=== PATIENT | female | born 1955 | race Caucasian/White ===

== ENCOUNTER 2016-10-04 09:42 | Emergency (ER) | payer MEDICAID ==
[2016-10-04 10:00] VITALS: BP 153/50
[2016-10-04] MEDS ORDERED: Oseltamivir 75 MG Cap PO ONE ×2 (10:47→10:48)
[2016-10-04] MEDS ORDERED: Ibuprofen 800 MG Tab PO ONE (10:48)
--- NOTE | 2016-10-04 10:53 | EDM.PDOC ---
ED HISTORY OF PRESENT ILLNESS - General Chief Complaint: Respiratory Problem Stated Complaint: HIGH TEMP 104 CONGESTION SHORT OF BREATH Time Seen by Provider: 10/04/16 10:40 Source: Reports: Patient, RN notes reviewed History Limitations: Reports: No limitations - History of Present Illness INITIAL COMMENTS - FREE TEXT/NARRATIVE: 61-year-old female presents emergency department cough fever and body aches, she has been exposed to influenza A and influenza B she did receive a flu shot this yearshe complains of sputum production coughing to the point of posttussive emesis - Related Data Allergies/ADRs: Allergies Allergy/AdvReac Type Severity Reaction Status Date / Time Iodinated Contrast Media - Allergy Severe Shortness Verified 09/24/14 13:58 Oral and of Breath [Iodinated Contrast Media - IV Dye] shellfish derived Allergy Severe Shortness Verified 09/24/14 13:58 of Breath iodine Allergy Cannot Verified 09/24/14 13:58 Remember Home Meds: Home Meds Aspirin [Adult Low Dose Aspirin EC] 81 mg PO DAILY 01/05/14 [History] Calcium Carbonate/Vitamin D3 [Os-Jacques 500+D] 1 each PO BID 01/05/14 [History] Cyanocobalamin (Vitamin B12) [Vitamin B12] 1,000 mcg IJ .MONTHLY 01/05/14 [ History] Multivitamins [Child Chew Vitamin] 1 tab PO BID 01/05/14 [History] Omeprazole 20 mg PO BIDAC 01/05/14 [History] Ondansetron [Zofran] 4 mg PO Q4H PRN 01/05/14 [History] Sucralfate [Carafate] 1 gm PO QID 01/05/14 [History] Triamterene/Hydrochlorothiazid [Triamterene-HCTZ 37.5-25 MG] 1 each PO DAILY [History] Vitamin B Complex [B Complex] 1 each PO DAILY 01/05/14 [History] rOPINIRole [Requip] 1 - 4 tab PO BEDTIME 01/05/14 [History] Albuterol Sulfate [Proair Hfa] 8.5 gm IH Q4H 08/10/14 [History] HYDROmorphone HCl [Dilaudid] 2 mg PO Q4HR PRN 09/24/14 [History] HYDROmorphone HCl [Dilaudid] 2 - 4 mg PO Q4H #50 tablet 09/29/14 [Rx] Past Medical History Respiratory History: Reports: Asthma Gastrointestinal History: Reports: Other (see below) Other Gastrointestinal History: RNY 2002 Social & Family History - Tobacco Use Smoking Status *Q: Never Smoker Second Hand Smoke Exposure: No - Alcohol Use Days Per Week of Alcohol Use: 0 - Recreational Drug Use Recreational Drug Use: No ED ROS GENERAL - Review of Systems Review Of Systems: See Below Constitutional: Reports: fever, chills HEENT: Reports: No symptoms Respiratory: Reports: Shortness of Breath, Cough, Sputum Cardiovascular: Reports: No symptoms GI/Abdominal: Reports: Vomiting (after coughing) ED EXAM, GENERAL - Physical Exam Exam: See Below Exam Limited By: No limitations General Appearance: alert, WD/WN, no apparent distress Head: atraumatic, normocephalic Neck: normal inspection, supple, non-tender, full range of motion Respiratory/Chest: no respiratory distress, lungs clear, normal breath sounds, no accessory muscle use Cardiovascular: regular rate, rhythm, no murmur Course - Vital Signs Last Recorded V/S: Last Vital Signs Temp 102.9 F H 10/04/16 09:57 Pulse 94 10/04/16 09:57 Resp 22 H 10/04/16 09:57 BP 153/50 H 10/04/16 09:57 Pulse Ox - Orders/Labs/Meds Orders: Active Orders 24 hr Category Date Time Status Ibuprofen [Motrin] Med 10/04/16 10:48 Once 800 mg PO ONETIME ONE Oseltamivir [Tamiflu] Med 10/04/16 10:48 Once 75 mg PO ONETIME ONE Medication Orders Ibuprofen (Motrin) 800 mg PO ONETIME ONE Stop: 10/04/16 10:49 Oseltamivir Phosphate (Tamiflu) 75 mg PO ONETIME ONE Stop: 10/04/16 10:49 Meds: Medications Generic Name Dose Route Start Last Admin Trade Name Freq PRN Reason Stop Dose Admin Ibuprofen 800 mg 10/04/16 10:48 Motrin PO 10/04/16 10:49 ONETIME ONE Oseltamivir Phosphate 75 mg 10/04/16 10:48 Tamiflu PO 10/04/16 10:49 ONETIME ONE Discontinued Medications Generic Name Dose Route Start Last Admin Trade Name Freq PRN Reason Stop Dose Admin Oseltamivir Phosphate 75 mg 10/04/16 10:47 Tamiflu PO 10/04/16 10:48 ONETIME ONE Departure - Departure Time of Disposition: 10:52 Disposition: Home, Self-Care 01 Condition: good Clinical Impression: Viral syndrome Forms: ED Department Discharge Additional Instructions: take full course of Tamiflu, use Tessalon Perles as needed for coughing symptoms , use Tylenol and Motrin to help control fever, Please followup with your primary care provider in 3-5 days if not better, please call return to the emergency department with worsening of symptoms. - My Orders Last 24 Hours: My Active Orders 10/04/16 10:48 Ibuprofen [Motrin] 800 mg PO ONETIME ONE Oseltamivir [Tamiflu] 75 mg PO ONETIME ONE - Assessment/Plan Last 24 Hours: My Active Orders 10/04/16 10:48 Ibuprofen [Motrin] 800 mg PO ONETIME ONE Oseltamivir [Tamiflu] 75 mg PO ONETIME ONE Plan: Assessment Acuity = acute Site and laterality = viral syndrome Etiology = probable influenza A. Manifestations = fever, cough, posttussive emesis Location of injury = home Lab values = none Plan given her history I gave her the options of further workup and evaluation versus treatment she elected to proceed with treatment therefore she was given one dose of Tamiflu now one dose to take home prescription written for that she can fill tomorrow pharmacy also prescription for Tessalon Perles continue with Tylenol and Motrin to control fevers Patient was in agreement with the plan all questions were answered, they were instructed to return to the emergency department or call for worsening symptoms. This note was dictated using [employer] voice recognition software please call with any questions.
== END 2016-10-04 11:09 | disposition home or self-care (01) ==
LOC: JP.ED 09:42
DX: B34.9 Viral infection, unspecified (principal); J45.909 Unspecified asthma, uncomplicated; Z79.82 Long term (current) use of aspirin; Z79.899 Other long term (current) drug therapy; Z91.013 Allergy to seafood; Z91.041 Radiographic dye allergy status
CPT/HCPCS: 99285; A9270

== ENCOUNTER 2017-01-04 16:22 | Emergency (ER) | payer MEDICAID ==
[2017-01-04] MEDS ORDERED: LORazepam 0.5 MG Tab PO ONE (16:43)
[2017-01-04 17:32] VITALS: BP 141/86
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
== END 2017-01-04 18:20 | disposition home or self-care (01) ==
LOC: JP.ED 16:22
DX: R06.4 Hyperventilation (principal); F41.9 Anxiety disorder, unspecified; I10 Essential (primary) hypertension; J45.909 Unspecified asthma, uncomplicated; Z91.041 Radiographic dye allergy status; Z91.013 Allergy to seafood; Z88.8 Allergy status to other drugs, medicaments and biological substances; Z79.82 Long term (current) use of aspirin; Z79.899 Other long term (current) drug therapy; Z90.710 Acquired absence of both cervix and uterus; Z98.51 Tubal ligation status; Z98.1 Arthrodesis status
CPT/HCPCS: 36415; 36600; 70450; 80053; 80305; 81001; 82803; 85025; 93005; 99284; A9270

== ENCOUNTER 2020-01-15 10:10 | Emergency (ER) | payer MEDICAID, MEDICARE ==
[2020-01-15 10:31] VITALS: BP 170/74; PULSE 75
--- NOTE | 2020-01-15 10:44 | EDM.PDOC ---
ED HPI GENERAL MEDICAL PROBLEM - General Chief Complaint: General Stated Complaint: fell and hit side of face on FRIDAY 01/12 Time Seen by Provider: 01/15/20 10:25 Source of Information: Reports: Patient, Family, Old Records, RN History Limitations: Reports: No Limitations - History of Present Illness INITIAL COMMENTS - FREE TEXT/NARRATIVE: 64 yo female fell in her home 2 days ago and landed on her L side. She is not sure why she fell. Was able to get up and fxn normally after that. Has noticed some forehead tingling and L arm tingling sine the injury, but she admits she hit both of there areas when she fell. She called the clinic today and was told to go to the ER. Has had no problem walking since and no speech issues. She had stiffness after the fall yesterday that is improving. Onset: Sudden Onset Date: 01/13/20 Duration: Day(s): (2), Improving Location: Reports: Face (L forehead), Upper Extremity, Left Quality: Reports: Other (tingling) Severity: Mild Improves with: Reports: Other (time) Worsens with: Reports: Other (? 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: Other (see below) (none) Left Arm Pain Score (Numeric/FACES): 4 - Related Data Allergies Allergy/AdvReac Type Severity Reaction Status Date / Time Iodinated Contrast Media Allergy Severe Shortness Verified 01/04/17 16:59 [Iodinated Contrast Media - of Breath IV Dye] shellfish derived Allergy Severe Shortness Verified 01/04/17 16:59 of Breath iodine Allergy Cannot Verified 01/04/17 16:59 Remember Home Meds: Home Meds Aspirin [Adult Low Dose Aspirin EC] 81 mg PO DAILY 01/05/14 [History] Calcium Carbonate/Vitamin D3 [Os-Jacques 500+D] 1 each PO BID 01/05/14 [History] Cyanocobalamin (Vitamin B12) [Vitamin B12] 1,000 mcg IJ .MONTHLY 01/05/14 [History] Multivitamins [Child Chew Vitamin] 1 tab PO BID 01/05/14 [History] Omeprazole 20 mg PO DAILY 01/05/14 [History] Triamterene/Hydrochlorothiazid [Triamterene-HCTZ 37.5-25 MG] 1 each PO DAILY 01/05/14 [History] Vitamin B Complex [B Complex] 1 each PO DAILY 01/05/14 [History] rOPINIRole [Requip] 1 - 4 tab PO BEDTIME 01/05/14 [History] Albuterol Sulfate [Proair Hfa] 8.5 gm IH Q4H 08/10/14 [History] lisinopriL [Lisinopril] 20 mg PO DAILY 01/15/20 [History] Past Medical History HEENT History: Reports: Other (See Below) Other HEENT History: floaties in eyes Cardiovascular History: Reports: Hypertension Respiratory History: Reports: Asthma Gastrointestinal History: Reports: Bowel Obstruction Other Gastrointestinal History: RNY 2002 Genitourinary History: Reports: None 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: Musculoskeletal History: Reports: Fracture, Neck Pain, Chronic Other Musculoskeletal History: neck fracture with repair 1986 Neurological History: Reports: Head Trauma Psychiatric History: Reports: Anxiety - Infectious Disease History Infectious Disease History: Reports: Chicken Pox - Past Surgical History GI Surgical History: Reports: Bariatric Procedure, Cholecystectomy, Hernia Repair/Other, Other (See Below) Other GI Surgeries/Procedures: multiple hernia surgeries unsure Female Surgical History: Reports: Hysterectomy, Tubal Ligation Neurological Surgical History: Reports: Spinal Fusion Social & Family History - Tobacco Use Smoking Status *Q: Never Smoker - Caffeine Use Caffeine Use: Reports: Coffee - Recreational Drug Use Recreational Drug Use: No ED ROS GENERAL - Review of Systems Review Of Systems: See Below Constitutional: Reports: No Symptoms HEENT: Reports: No Symptoms Respiratory: Reports: No Symptoms Cardiovascular: Reports: No Symptoms GI/Abdominal: Reports: No Symptoms Musculoskeletal: Reports: No Symptoms Skin: Reports: No Symptoms Neurological: Reports: Headache (chronic, not worse), Tingling (L arm and L forehead in areas she hit with her fall 2 d ago. ). Denies: Confusion, Dizziness, Seizure, Syncope, Trouble Speaking, Difficulty Walking, Change in Speech, Gait Disturbance Psychiatric: Reports: No Symptoms ED EXAM, GENERAL - Physical Exam Exam: See Below Exam Limited By: No Limitations General Appearance: Alert, WD/WN, No Apparent Distress Eye Exam: Bilateral Eye: Normal Inspection Ears: Normal External Exam, Normal Canal, Hearing Grossly Normal, Normal TMs Ear Exam: Bilateral Ear: Auricle Normal, Canal Normal Nose: Normal Inspection, No Blood Throat/Mouth: Normal Inspection, Normal Lips, Normal Oropharynx, Normal Voice, No Airway Compromise Head: Atraumatic, Normocephalic Neck: Normal Inspection, Supple, Non-Tender, Full Range of Motion Respiratory/Chest: No Respiratory Distress, Lungs Clear, Normal Breath Sounds, No Accessory Muscle Use Cardiovascular: Regular Rate, Rhythm, No Edema GI/Abdominal: Normal Bowel Sounds, Soft, Non-Tender, No Distention Back Exam: Normal Inspection. No: Decreased Range of Motion, Vertebral Tenderness Extremities: Normal Inspection, Normal Range of Motion, Non-Tender, No Pedal Edema Neurological: Alert, Oriented, CN II-XII Intact, Normal Cognition, No Motor/Sensory Deficits. No: Disoriented, Abnormal Gait, Abnormal Reflexes, Sensory/Motor Deficit Psychiatric: Normal Affect, Normal Mood Skin Exam: Warm, Dry, Intact, Normal Color, No Rash Course - Vital Signs Last Recorded V/S: Last Vital Signs Temp 36.1 C 01/15/20 10:25 Pulse 75 01/15/20 10:25 Resp 16 01/15/20 10:25 BP 170/74 H 01/15/20 10:25 Pulse Ox 98 01/15/20 10:25 Departure - Departure Time of Disposition: 10:44 Disposition: Home, Self-Care 01 Condition: Good Clinical Impression: Fall Qualifiers: Encounter type: initial encounter Qualified Code(s): W19.XXXA - Unspecified fall, initial encounter - Discharge Information *PRESCRIPTION DRUG MONITORING PROGRAM REVIEWED*: No *COPY OF PRESCRIPTION DRUG MONITORING REPORT IN PATIENT NICKOLAS: No Referrals: Bonnie Yang PA-C [Primary Care Provider] - Additional Instructions: Recheck if your symptoms do not continue to improve over the next few days. Sepsis Event Note (ED) - Evaluation Sepsis Screening Result: No Definite Risk - Focused Exam Vital Signs: Vital Signs Temp Pulse Resp BP Pulse Ox 01/15/20 10:25 36.1 C 75 16 170/74 H 98
== END 2020-01-15 11:00 | disposition home or self-care (01) ==
LOC: JP.ED 10:10
DX: R20.2 Paresthesia of skin (principal); I10 Essential (primary) hypertension; J45.909 Unspecified asthma, uncomplicated; Z88.6 Allergy status to analgesic agent; Z91.013 Allergy to seafood; Z91.041 Radiographic dye allergy status; Z79.82 Long term (current) use of aspirin; Z79.899 Other long term (current) drug therapy; Z90.49 Acquired absence of other specified parts of digestive tract; Z90.710 Acquired absence of both cervix and uterus; Z98.51 Tubal ligation status; Z98.890 Other specified postprocedural states; W01.10XA Fall on same level from slipping, tripping and stumbling with subsequent striking against unspecified object, initial encounter
CPT/HCPCS: 99283

== ENCOUNTER 2020-07-04 05:36 | Day surgery (SDC) | payer MEDICARE ==
[2020-07-04] MEDS ORDERED: Lactated Ringers 1,000 ML IV SCH ×2 (06:15→09:15)
[2020-07-04] MEDS ORDERED: Cyanocobalamin (Vitamin B12) 1,000 MCG/ML SDV IM ONE ×2 (06:45→08:15)
[2020-07-04] MEDS ORDERED: fentaNYL 100 MCG/2 ML SDV ONE ×2 (07:00→09:51)
[2020-07-04] MEDS ORDERED: Midazolam 1 MG/ML 2 ML SDV ONE ×2 (07:00→09:51)
[2020-07-04] MEDS ORDERED: Propofol 200 MG/20 ML SDV ONE ×2 (07:01→09:51)
[2020-07-04] MEDS ORDERED: Glycopyrrolate 0.2 MG/ML 2 ML SDV IVPUSH ONE ×2 (07:15→09:45)
[2020-07-04] MEDS ORDERED: MVI, Adult with Vitamin K 10 ML, Thiamine 200 MG, Chromium/Copper/Mang/Selen/Zn 1 ML in... IV SCH ×4 (07:30)
[2020-07-04 09:16] VITALS: BP 114/64; PULSE 61
[2020-07-04] MEDS ORDERED: MVI, Adult with Vitamin K 10 ML, Thiamine 200 MG, Zinc/Copper/Manganese/Selenium 1 ML i... IV ONE ×4 (10:15)
--- NOTE | 2020-07-14 16:50 | OR ---
DATE OF PROCEDURE: 07/04/2020 SURGEON: Raul Jones MD PREOPERATIVE DIAGNOSIS: Postprandial upper and mid abdominal pain. POSTOPERATIVE DIAGNOSIS: Normal upper gastrointestinal endoscopic examination status post Marcelo-en-Y gastric bypass suggestive of more distal partial small bowel obstruction. OPERATIVE PROCEDURE: Upper gastrointestinal endoscopy. ANESTHESIA: IV sedation. INDICATION FOR PROCEDURE: A 65-year-old status post Marcelo-en-Y gastric bypass. In the past, she has had some bowel obstructions and is presently having problems with postprandial abdominal pain. The plan is to proceed with initial upper GI endoscopy for evaluation. Potential risks including bleeding and perforation were discussed, and the patient wishes to proceed. DETAILS OF PROCEDURE: The patient was taken to the operating room and placed in a left lateral decubitus position. IV sedation was administered after which the upper GI endoscope was passed orally through the length of the esophagus, into the gastric pouch, from there through the gastrojejunostomy roughly 20 cm into the Marcelo limb. To that level, no abnormalities were noted. There were no areas of inflammation or stricturing. The scope was then withdrawn and the above findings reconfirmed. The overall picture with an upper GI endoscopic examination with the patient's symptoms would be all consistent with a partial small bowel obstruction. This will be discussed with the patient and arrangements were made for a probable laparotomy for traction. Raul Jones MD /[id number]
== END 2020-07-04 10:00 | disposition home or self-care (01) ==
LOC: JP.SDS 05:36
PROVIDERS: ATTEND Surgery
DX: R10.9 Unspecified abdominal pain (principal); I10 Essential (primary) hypertension; J45.909 Unspecified asthma, uncomplicated; K21.9 Gastro-esophageal reflux disease without esophagitis; Z01.812 Encounter for preprocedural laboratory examination; Z20.822 Contact with and (suspected) exposure to COVID-19; Z98.84 Bariatric surgery status
CPT/HCPCS: 44360; J2250; J2704; J3010; J3411; J3420; J3490; J7120; U0002

== ENCOUNTER 2020-07-11 05:19 | Inpatient (IN) | payer MEDICARE ==
[2020-07-11] MEDS ORDERED: Acetaminophen 500 MG Tab PO ONE (05:45)
[2020-07-11] MEDS ORDERED: Dextrose 5%-Lactated Ringers 1,000 ML IV SCH (06:00)
[2020-07-11] MEDS ORDERED: Albuterol/Ipratropium 3.0-0.5 MG/3 ML Neb Soln NEB ONE (06:30)
[2020-07-11] MEDS ORDERED: Meropenem 500 MG SDV ONE (06:46)
[2020-07-11] MEDS ORDERED: Ondansetron 4 MG/2 ML SDV ONE (07:06)
[2020-07-11] MEDS ORDERED: Dexamethasone 4 MG/ML SDV ONE (07:06)
[2020-07-11] MEDS ORDERED: Succinylcholine 200 MG/10 ML MDV ONE (07:06)
[2020-07-11] MEDS ORDERED: Rocuronium 50 MG/5 ML Vial ONE (07:06)
[2020-07-11] MEDS ORDERED: Propofol 200 MG/20 ML SDV ONE (07:06)
[2020-07-11] MEDS ORDERED: Glycopyrrolate 0.2 MG/ML 5 ML MDV ONE (07:06)
[2020-07-11] MEDS ORDERED: Neostigmine Methylsulfate 1 MG/ML 5 ML Syringe ONE (07:06)
[2020-07-11] MEDS ORDERED: fentaNYL 250 MCG/5 ML SDV ONE ×2 (07:07→07:49)
[2020-07-11] MEDS ORDERED: cefOXitin 2 GM in Sodium Chloride 0.9% 50 ML IV ONE (07:15)
[2020-07-11] MEDS ORDERED: Magnesium Sulfate 3.5 GM in Sodium Chloride 0.9% 250 ML IV ONE (07:30)
[2020-07-11] MEDS ORDERED: Ropivacaine 36 ML, dexAMETHasone 8 MG, EPINEPHrine 0.4 MG, Sodium Chloride 0.9% 41.6 ML NERVRT SCH ×4 (07:30)
[2020-07-11] MEDS ORDERED: Magnesium Sulfate 2 GM in Sodium Chloride 0.9% 100 ML IV SCH (07:30)
[2020-07-11] MEDS ORDERED: Ketamine 50 MG in Sodium Chloride 0.9% 49.5 ML IV SCH (07:30)
[2020-07-11] MEDS ORDERED: Ketamine 500 MG/5 ML MDV IV SCH (07:30)
[2020-07-11] MEDS ORDERED: Naloxone 0.4 MG/ML SDV IVPUSH PRN (07:51)
[2020-07-11] MEDS ORDERED: diphenhydrAMINE 25 MG Cap PO PRN (07:51)
[2020-07-11] MEDS ORDERED: diphenhydrAMINE 50 MG/ML SDV IVPUSH PRN (07:51)
[2020-07-11] MEDS ORDERED: HYDROmorphone/Normal Saline 15 MG/30 ML PCA IV PRN (07:51)
[2020-07-11] MEDS ORDERED: Ondansetron 4 MG/2 ML SDV IVPUSH PRN (07:51)
[2020-07-11] MEDS ORDERED: Lidocaine 1% with EPINEPHrine 1:100,000 50 ML MDV ONE (08:48)
[2020-07-11] MEDS ORDERED: Bupivacaine 0.5% 50 ML MDV ONE (08:48)
[2020-07-11] MEDS ORDERED: Ondansetron 4 MG/2 ML SDV IVPUSH ONE (09:29)
[2020-07-11] MEDS ORDERED: Cyclobenzaprine 10 MG Tab PO PRN (11:04)
[2020-07-11] MEDS ORDERED: Benzonatate 100 MG Cap PO PRN (11:11)
[2020-07-11] MEDS ORDERED: Non-Formulary Medication 1 Each IV ONE (11:43)
[2020-07-11] MEDS ORDERED: Labetalol 20 MG/4 ML Syringe IVPUSH PRN (12:00)
[2020-07-11] MEDS ORDERED: hydrOXYzine HCL 100 MG/2 ML SDV IM PRN (12:00)
[2020-07-11] MEDS ORDERED: Calcium Gluconate 10% 1 GM/10 ML SDV IVPUSH PRN (12:00)
[2020-07-11] MEDS ORDERED: Acetaminophen 500 MG Tab PO PRN (12:00)
[2020-07-11] MEDS ORDERED: Metoclopramide 10 MG/2 ML SDV IVPUSH PRN (12:00)
[2020-07-11] MEDS ORDERED: Albuterol/Ipratropium 3.0-0.5 MG/3 ML Neb Soln INH PRN (12:00)
[2020-07-11] MEDS: Acetaminophen 500 MG Tab PO SCH ×2 (13:02→20:14)
[2020-07-11] MEDS: cefOXitin 2 GM in Sodium Chloride 0.9% 50 ML IV SCH ×2 (14:46→20:08)
[2020-07-11] MEDS ORDERED: Pantoprazole 40 MG Vial IVPUSH SCH (16:00)
[2020-07-11] MEDS: MVI, Adult with Vitamin K 10 ML, Thiamine 200 MG, Zinc/Copper/Manganese/Selenium 1 ML i... IV SCH ×4 (16:01)
[2020-07-11] MEDS: Albuterol/Ipratropium 3.0-0.5 MG/3 ML Neb Soln INH SCH ×2 (16:46→20:19)
[2020-07-11] MEDS: Heparin Sodium 5,000 Units/ML Vial SUBCUT SCH (17:24)
[2020-07-11] MEDS: Docusate Sodium 100 MG Cap PO SCH (20:13)
[2020-07-11] MEDS: rOPINIRole 0.5 MG Tab PO SCH (20:14)
[2020-07-11] MEDS: Dextrose 5%-Lactated Ringers 1,000 ML IV SCH (22:25)
[2020-07-12] MEDS: cefOXitin 2 GM in Sodium Chloride 0.9% 50 ML IV SCH ×3 (02:24→13:48)
[2020-07-12] MEDS ORDERED: Iopamidol 612 MG/ML 50 ML SDV PO STA (02:52)
[2020-07-12] MEDS ORDERED: methylPREDNISolone Sodium Succinate 40 MG/1 ML SDV IVPUSH ONE (03:00)
[2020-07-12] MEDS ORDERED: diphenhydrAMINE 50 MG/ML SDV IVPUSH ONE ×2 (03:00→07:30)
[2020-07-12] MEDS: Dextrose 5%-Lactated Ringers 1,000 ML IV SCH ×2 (04:46→12:00)
[2020-07-12] MEDS: Acetaminophen 500 MG Tab PO SCH ×3 (04:50→19:19)
[2020-07-12] MEDS: Heparin Sodium 5,000 Units/ML Vial SUBCUT SCH ×2 (05:41→17:46)
[2020-07-12] MEDS ORDERED: HYDROmorphone 2 MG Tab PO PRN (07:07)
[2020-07-12] MEDS ORDERED: Ondansetron 4 MG Tab.DIS PO PRN (07:08)
[2020-07-12] MEDS ORDERED: methylPREDNISolone Sodium Succinate 125 MG/2 ML SDV IVPUSH ONE (07:30)
[2020-07-12] MEDS: Albuterol/Ipratropium 3.0-0.5 MG/3 ML Neb Soln INH SCH ×4 (08:17→20:53)
--- NOTE | 2020-07-12 08:43 | PN ---
DATE OF SERVICE: 07/12/2020 SUBJECTIVE: Ivett is postoperative day #1. She had no operative complications. Vital signs have been stable. She has been up, ambulating. Bah was removed. She has voided 3 times. Pain is controlled with the SHEETER OPERATOR. REVIEW OF SYSTEMS: Remainder of review of systems negative for any pertinent positives and negatives. OBJECTIVE: GENERAL: Ivett Cervantes is a pleasant 65-year-old female, resting comfortably in bed. VITAL SIGNS: TPR 98.1, 80, 16, blood pressure 126/51. HEENT: Negative. NECK: Supple. HEART: Regular rate and rhythm. LUNGS: Clear. ABDOMEN: Dressings dry and intact. Abdominal binder is on. EXTREMITIES: Without peripheral edema. Oral intake 690 and urine output 1475. ASSESSMENT: Exploratory laparotomy with: 1. Revision of the jejunojejunostomy component of the Marcelo-en-Y gastric bypass surgery. 2. Separate small-bowel stricture plasty. 3. Removal of intraperitoneal mesh. 4. Small bowel strictureplasty. 5. Placement of Interceed mesh. POSTOPERATIVE DIAGNOSES: 1. Partial small bowel obstruction at the jejunojejunostomy. 2. Incarcerated recurrent incisional hernia. 3. Potentially contaminated intraperitoneal mesh. 4. 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 5. Extensive intraabdominal adhesions. 6. Date of surgery: 07/11/2020. Surgeon: Raul Jones MD. PLAN: 1. Decrease IV to 100 mL per hour. 2. Step 3 gastric bypass diet. 3. Discontinue SHEETER OPERATOR. 4. Discontinue continuous pulse ox. 5. Discontinue cardiac monitoring. 6. Dilaudid 2 mg 1 to 2 q.4 hours p.r.n. pain. 7. Continue ambulation and incentive spirometer as ordered. 8. We will evaluate p.r.n. or in a.m. Meggan White PA-C /[id number]
[2020-07-12] MEDS: Docusate Sodium 100 MG Cap PO SCH ×2 (08:49→20:53)
[2020-07-12] MEDS: Celecoxib 200 MG Cap PO SCH ×2 (08:49→20:53)
[2020-07-12] MEDS: Hydrochlorothiazide/Triamterene 25-37.5 Tab PO SCH (08:49)
[2020-07-12] MEDS: MVI, Adult with Vitamin K 10 ML, Thiamine 200 MG, Zinc/Copper/Manganese/Selenium 1 ML i... IV SCH ×4 (15:47)
[2020-07-12] MEDS ORDERED: Pantoprazole 40 MG Delayed-Release Granules 1 Packet PO SCH (16:00)
[2020-07-12] MEDS: rOPINIRole 0.5 MG Tab PO SCH (20:53)
[2020-07-13] MEDS: Dextrose 5%-Lactated Ringers 1,000 ML IV SCH (01:46)
[2020-07-13] MEDS: Acetaminophen 500 MG Tab PO SCH (03:49)
[2020-07-13] MEDS: Heparin Sodium 5,000 Units/ML Vial SUBCUT SCH (05:16)
[2020-07-13] MEDS: Albuterol/Ipratropium 3.0-0.5 MG/3 ML Neb Soln INH SCH (07:24)
[2020-07-13 08:06] VITALS: BP 116/64; PULSE 67
[2020-07-13] MEDS: Docusate Sodium 100 MG Cap PO SCH (08:31)
[2020-07-13] MEDS: Hydrochlorothiazide/Triamterene 25-37.5 Tab PO SCH (08:31)
[2020-07-13] MEDS: Celecoxib 200 MG Cap PO SCH (08:31)
[2020-07-13] MEDS ORDERED: Cyanocobalamin (Vitamin B12) 1,000 MCG/ML SDV IM ONE (09:00)
--- NOTE | 2020-07-14 13:18 | DISCH ---
FINAL DIAGNOSES: 1. Partial small bowel obstruction at jejunojejunostomy. 2. Incarcerated recurrent incisional hernia. 3. 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 4. Potentially contaminated intraperitoneal mesh. 5. Extensive intraabdominal adhesions. SECONDARY DIAGNOSES: 1. Bariatric surgery status. 2. History of restless legs syndrome. 3. Hypertension. 4. History of osteoarthritis. 5. History of asthma. OPERATIVE PROCEDURES: Done on 07/11. Exploratory laparotomy with: 1. Revision of jejunojejunostomy component of Marcelo-en-Y gastric bypass. 2. Separate small bowel stricturoplasty. 3. Removal of portion of intraperitoneal mesh. 4. Small bowel stricturoplasty. 5. Placement of Interceed mesh to limit recurrent adhesion formation. SUMMARY: This is a 65-year-old female presenting with a picture of partial small bowel obstruction status post Marcelo-en-Y gastric bypass. Her clinical presentation was that of postprandial crampy abdominal pain. She has had previous bowel obstruction in the past, which was consistent with those symptoms. On the day of admission, the patient underwent exploratory laparotomy. She had revision of the jejunojejunostomy with the intent of some additional weight loss along with small bowel stricturoplasty. The primary point of obstruction appeared to be of the point where the Marcelo limb entered the jejunojejunostomy. The jejunojejunostomy was taken down and the Marcelo limb was then made more distal on the what had been previous common limb to facilitate some additional weight loss. There was also some stricturing at the remaining junction of the biliopancreatic limb and common limb at the original anastomosis, which were treated by means of stricturoplasty and she had some intraperitoneal mesh and this was potentially contaminated, a portion of that was removed and Interceed mesh is to limit recurrent adhesion formation. She did have recurrent incarcerated incisional hernia within the previous incision. Postoperatively, the patient has done very well. She will be discharged home. We will add some Tylenol and ibuprofen as necessary. Otherwise, medications will be as preoperatively. She will be following up with Meggan White at [facility] on 07/22/2020. /[id number]
--- NOTE | 2020-07-15 09:45 | CR ---
UGI Limited HISTORY: Postbariatric surgery FINDINGS: Patient swallowed water-soluble contrast. Upright views of the abdomen show no evidence of extravasation or obstruction. IMPRESSION: Status post bariatric surgery No extravasation or obstruction seen
--- NOTE | 2020-07-22 12:03 | OR ---
DATE OF PROCEDURE: 07/11/2020 SURGEON: Raul Jones MD PREOPERATIVE DIAGNOSIS: Partial small bowel obstruction. POSTOPERATIVE DIAGNOSES: 1. Partial small bowel obstruction at previous jejunojejunostomy. 2. Incarcerated recurrent incisional hernia. 3. Potentially contaminated intraperitoneal mesh. 4. Separate stricture at the junction of biliopancreatic and common limb of small bowel. 5. Extensive intraperitoneal adhesions. OPERATIVE PROCEDURE: Exploratory laparotomy with: 1. Revision of jejunojejunostomy component of Marcelo-en-Y gastric bypass (87846). 2. Separate small bowel stricturoplasty (84894). 3. Removal of intraperitoneal mesh (81696). 4. Placement of Interceed mesh to limit recurrent adhesion formation between abdominal and pelvic wall and underlying viscera (07460). ANESTHESIA: General. PROJECT LEAD: Meggan White PA-C INDICATIONS FOR PROCEDURE: This is a 65-year-old female presenting with some persistent problems with postprandial crampy abdominal pain and bloating following previous Marcelo-en-Y gastric bypass. The overall picture was consistent with a partial small bowel obstruction. The plan is to proceed with limited exploratory laparotomy with lysis of adhesions and/or bowel resection as indicated. Potential risks of the procedure including bleeding and infection were reviewed with the patient and she wishes to proceed. The patient would like to lose a little bit more weight, so if it appears appropriate, we would distalize the small bowel limb lengths somewhat so as to forward with some additional weight loss. Potential side effects including increased frequency of bowel movements and more rigorous requirements regarding nutritional supplementation were gone over and the patient likewise wishes to proceed. DETAILS OF PROCEDURE: The patient was taken to the operating room and placed in a supine position. After general endotracheal anesthesia was induced, the abdomen was prepped and draped. Bah catheter inserted. A midline incision from the umbilicus roughly a handsbreadth toward the xiphoid was made and carried down through the full-thickness abdominal wall. There was some intraperitoneal mesh located in the area of left of the midline which was felt to be at risk for wound infection and this was removed at this point otherwise appeared to be at this point intact overlying muscular and fascial layer. The patient had extensive adhesions, eventually it became evident. There was stricturing at the point where the Marcelo limb entered the jejunojejunostomy component of the Marcelo-en-Y gastric bypass and this was divided. At this point, a segment of small bowel was resected with SYL stapler as was the underlying mesentery. The anastomosis of the Mareclo limb was then carried down somewhat more distally to facilitate some increased weight loss. This was accomplished with internal firing of the Endo-SYL 60 mm stapler, followed by SYL stapler as well the angles anastomosed and was reinforced with some 3-0 silk stitch as was the mesenteric defect. The anastomosis between the biliopancreatic limb and common limb was noted to be somewhat stenotic at this point. The anterior mesenteric border of this area was then opened and initially internal firing of the Endo-SYL stapler 60 mm was accomplished internally between the 2 segments of bowel somewhat larger anastomosis and secondary 30 mm internal firing was then accomplished. The common opening then closed transversely with the SYL stapler. The angles anastomosed and reinforced with some 3-0 Vicryl stitch. In this case, there were no mesenteric defects present. At this point, no further problems were noted. The limb-lengths were then coming out of the biliopancreatic limb during this case and increased from 30 to 100 cm. The Marcelo limb was 75 cm 325 cm. The abdomen was irrigated with antibiotic-containing saline solution. The Interceed mesh was then placed underneath the incision and from there down toward the pelvis to limit recurrent adhesion formation between the pelvic and abdominal wall and underlying viscera. The midline fascia was then approximated with #2 Vicryl stitch, subcutaneous tissue with some 4-0 Vicryl stitch, and the skin with beth. Prior to closure, bilateral transversus abdominis plane blocks were also placed and the incision area anesthetized with 1% lidocaine mixed with Marcaine. Bradley were applied and the patient was taken to the recovery room in satisfactory condition. Physician speech correction assistant, Meggan White, played an essential role in assisting in this case, helping to position the patient, retract structures as needed, as well as suturing and cutting sutures when indicated. Her presence improved patient safety and decreased operative time. Raul Jones MD /[id number]
== END 2020-07-13 09:45 | disposition home or self-care (01) | DRG 327 ==
LOC: JP.SDS 05:19 → JP.SDSSCHI 05:19 → JP.MS 05:19 → UNDOADMIN 05:19 → EDSTATUS 08:15 → JP.SDSSCHI 09:40 → JP.MS 09:40
PROVIDERS: ADMIT Surgery; ATTEND Surgery
PROC: 3E0M05Z Introduction of Adhesion Barrier into Peritoneal Cavity, Open Approach (ICD-10-PCS; principal; 2020-07-11)
PROC: 0D160ZA Bypass Stomach to Jejunum, Open Approach (ICD-10-PCS; principal; 2020-07-11)
PROC: 0WPF0JZ Removal of Synthetic Substitute from Abdominal Wall, Open Approach (ICD-10-PCS; principal; 2020-07-11)
PROC: 0DQ80ZZ Repair Small Intestine, Open Approach (ICD-10-PCS; principal; 2020-07-11)
DX: K95.89 Other complications of other bariatric procedure (principal); K43.0 Incisional hernia with obstruction, without gangrene; K56.51 Intestinal adhesions [bands], with partial obstruction; Y83.8 Other surgical procedures as the cause of abnormal reaction of the patient, or of later complication, without mention of misadventure at the time of the procedure; Z98.84 Bariatric surgery status; G25.81 Restless legs syndrome; M19.90 Unspecified osteoarthritis, unspecified site; J45.909 Unspecified asthma, uncomplicated; I12.9 Hypertensive chronic kidney disease with stage 1 through stage 4 chronic kidney disease, or unspecified chronic kidney disease; N18.30 Chronic kidney disease, stage 3 unspecified; E53.8 Deficiency of other specified B group vitamins; E66.9 Obesity, unspecified; M48.061 Spinal stenosis, lumbar region without neurogenic claudication; E55.9 Vitamin D deficiency, unspecified; Z79.899 Other long term (current) drug therapy
CPT/HCPCS: 74240; 74240-26; 88300; 88302; 88307; 94640; A9270-GY; C9113; J0171; J0330; J0694; J1100; J1170; J1200; J1644; J2185; J2405; J2704; J2710; J2795; J2920; J3010; J3411; J3420; J3475; J3490; J7050; J7121; J7620-GY; Q9967

== ENCOUNTER 2023-09-30 08:10 | Day surgery (SDC) | payer MEDICARE ==
[2023-09-30] MEDS: Sodium Chloride 0.9% 10 ML Syringe FLUSH PRN (08:36)
[2023-09-30 09:05] VITALS: BP 137/66; PULSE 67
== END 2023-09-30 09:12 | disposition home or self-care (01) ==
LOC: JP.SDS 08:10
PROVIDERS: ATTEND Ophthalmology
DX: H25.12 Age-related nuclear cataract, left eye (principal); I10 Essential (primary) hypertension; Z79.899 Other long term (current) drug therapy; Z91.041 Radiographic dye allergy status; Z91.013 Allergy to seafood
CPT/HCPCS: 66984; J3490

== ENCOUNTER 2023-10-14 06:42 | Day surgery (SDC) | payer MEDICARE ==
[2023-10-14] MEDS: Sodium Chloride 0.9% 10 ML Syringe FLUSH PRN (07:26)
[2023-10-14 07:28] VITALS: PULSE 65
[2023-10-14 08:29] VITALS: BP 148/79
== END 2023-10-14 08:30 | disposition home or self-care (01) ==
LOC: JP.SDS 06:42
PROVIDERS: ATTEND Ophthalmology
DX: H25.11 Age-related nuclear cataract, right eye (principal); J45.909 Unspecified asthma, uncomplicated; I10 Essential (primary) hypertension
CPT/HCPCS: 66984; J3490; V2632

== ENCOUNTER 2024-02-07 22:43 | Emergency (ER) | payer MEDICARE ==
[2024-02-07 23:41] LABS: BASOPHILS ABSOLUTE AUTO 0.07 K/uL (0.00-0.10); BASOPHILS PERCENT AUTO 0.4 % (0.1-1.3); EOSINOPHILS ABSOLUTE AUTO 0.17 K/uL (0.00-0.40); EOSINOPHILS PERCENT AUTO 0.9 % (0.0-5.4); HEMATOCRIT 34.7 % (34.3-46.0); HEMOGLOBIN 11.4 g/dL (11.2-15.5); IMMATURE GRAN ABSOLUTE AUTO 0.07 K/uL (0.00-0.23); IMMATURE GRAN PERCENT AUTO 0.4 % (0.0-0.7); LYMPHOCYTES ABSOLUTE AUTO 0.65 K/uL (0.8-3.3); LYMPHOCYTES PERCENT AUTO 3.6 % (11.4-47.7); MEAN CORPUSCULAR HEMOGLOBIN 25.9 pg (31.6-35.5); MEAN CORPUSCULAR HGB CONC 32.9 g/dL (31.6-35.5); MEAN CORPUSCULAR VOLUME 78.7 fL (81.4-99.0); MONOCYTES ABSOLUTE AUTO 1.31 K/uL (0.20-0.90); MONOCYTES PERCENT AUTO 7.3 % (3.3-12.6); NEUTROPHILS ABSOLUTE AUTO 15.67 K/uL (1.0-7.6); NEUTROPHILS PERCENT AUTO 87.4 % (40.0-78.1); PLATELET COUNT,PLT 334 K/uL (130-375); RED BLOOD CELL COUNT 4.41 M/uL (3.77-5.24); WHITE BLOOD CELL COUNT,WBC 17.9 K/uL (3.2-11.0)
[2024-02-07] MEDS: fentaNYL 100 MCG/2 ML SDV IVPUSH ONE (23:41)
[2024-02-07] MEDS: Sodium Chloride 0.9% 10 ML Syringe FLUSH PRN (23:41)
[2024-02-07] MEDS: Sodium Chloride 0.9% 1,000 ML IV STA (23:41)
[2024-02-07] MEDS: Ondansetron 4 MG/2 ML SDV IVPUSH ONE (23:41)
[2024-02-07 23:59] LABS: APPEARANCE,URINE CLEAR (CLEAR); BILIRUBIN,URINE NEGATIVE (NEGATIVE); COLOR,URINE YELLOW (YELLOW); GLUCOSE,URINE NEGATIVE (NEGATIVE); KETONES,URINE TRACE mg/dL (NEGATIVE); LEUKOCYTE ESTERASE,URINE SMALL (NEGATIVE); NITRITE,URINE NEGATIVE (NEGATIVE); OCCULT BLOOD,URINE NEGATIVE (NEGATIVE); PROTEIN,URINE NEGATIVE (NEGATIVE); UROBILINOGEN,URINE 0.2 EU/dL (0.2-1.0)
[2024-02-08 00:23] LABS: ALANINE AMINOTRANSFERASE,ALT 22 U/L (12-78); ALBUMIN 3.6 g/dL (3.4-5.0); ALKALINE PHOSPHATASE 92 U/L (46-116); ANION GAP 14.8 mmol/L (5.0-14.0); ASPARTATE AMNIOTRANSFERASE,AST 27 U/L (15-37); BILIRUBIN TOTAL 0.4 mg/dL (0.2-1.0); BLOOD UREA NITROGEN,BUN 13 mg/dL (7-18); CALCIUM 8.6 mg/dL (8.5-10.1); CARBON DIOXIDE,CO2 23 mmol/L (21-32); CHLORIDE,CL 105 mmol/L (100-108); CREATININE 1.1 mg/dL (0.6-1.0); EST CRCL DRUG DOSING (CG) 40.51 mL/min; ESTIMATED GFR 54 mL/min (>60); GLUCOSE RANDOM 118 mg/dL (74-106); POTASSIUM,K 3.8 mmol/L (3.6-5.2); PROTEIN TOTAL,TP 7.2 g/dL (6.4-8.2); SODIUM,NA 139 mmol/L (140-148)
[2024-02-08 00:24] LABS: AMORPHOUS SEDIMENT,URINE NOT SEEN; BACTERIA,URINE MODERATE; EPITHELIAL CELLS,URINE FEW; MUCUS,URINE FEW; RBC,URINE 0-5 (0-5)
[2024-02-08] MEDS: diphenhydrAMINE 50 MG/ML SDV IVPUSH ONE (00:33)
[2024-02-08] MEDS: Iopamidol 612 MG/ML 100 ML Bottle IV SCH (01:11)
[2024-02-08] MEDS: Sodium Chloride 0.9% 80 ML IV SCH (01:11)
[2024-02-08] MEDS: Sodium Chloride 0.9% 10 ML Syringe FLUSH ONE (01:11)
[2024-02-08 03:39] VITALS: BP 105/51; PULSE 71
== END 2024-02-08 03:30 | disposition home or self-care (01) ==
LOC: JP.ED 22:43
DX: R10.84 Generalized abdominal pain (principal); R11.2 Nausea with vomiting, unspecified; I10 Essential (primary) hypertension; K21.9 Gastro-esophageal reflux disease without esophagitis; Z90.49 Acquired absence of other specified parts of digestive tract; Z90.710 Acquired absence of both cervix and uterus; Z79.899 Other long term (current) drug therapy; Z79.82 Long term (current) use of aspirin; Z91.041 Radiographic dye allergy status; Z91.048 Other nonmedicinal substance allergy status; Z91.013 Allergy to seafood
CPT/HCPCS: 36415; 74177; 80053; 81001; 83605; 83690; 85025; 87086; 96361; 96374; 96375; 99284; J1200; J2405; J3010; J3490; J7030; Q9967; 87088; 87186

== ENCOUNTER 2024-09-04 06:54 | Day surgery (SDC) | payer MEDICARE ==
[~2024-09-04 06:54] MED LIST: Dexamethasone 4 MG/ML SDV ONE; Glycopyrrolate 0.2 MG/ML 5 ML MDV ONE; Neostigmine Methylsulfate 10 MG/10 ML MDV ONE; Ondansetron 4 MG/2 ML SDV ONE; Propofol 200 MG/20 ML SDV ONE; Rocuronium 50 MG/5 ML Vial ONE; Succinylcholine 200 MG/10 ML MDV ONE; fentaNYL 250 MCG/5 ML SDV ONE
[2024-09-04] MEDS: Lactated Ringers 1,000 ML IV SCH (07:13)
[2024-09-04 07:24] LABS: HEMATOCRIT 36.6 % (34.3-46.0); HEMOGLOBIN 11.9 g/dL (11.2-15.5); MEAN CORPUSCULAR HEMOGLOBIN 26.2 pg (31.6-35.5); MEAN CORPUSCULAR HGB CONC 32.5 g/dL (31.6-35.5); MEAN CORPUSCULAR VOLUME 80.6 fL (81.4-99.0); RED BLOOD CELL COUNT 4.54 M/uL (3.77-5.24); WHITE BLOOD CELL COUNT,WBC 5.7 K/uL (3.2-11.0)
[2024-09-04] MEDS: metroNIDAZOLE/Normal Saline 500 MG in Premix Bag 1 BAG IV ONE (07:51)
[2024-09-04 07:55] LABS: A/G RATIO 1.1 (1.2-2.2); ALANINE AMINOTRANSFERASE,ALT 27 U/L (12-78); ALBUMIN 3.3 g/dL (3.4-5.0); ALKALINE PHOSPHATASE 109 U/L (46-116); ASPARTATE AMNIOTRANSFERASE,AST 22 U/L (15-37); BILIRUBIN TOTAL 0.4 mg/dL (0.2-1.0); BLOOD UREA NITROGEN,BUN 13 mg/dL (7-18); CARBON DIOXIDE,CO2 25 mmol/L (21-32); CHLORIDE,CL 109 mmol/L (100-108); CREATININE 0.8 mg/dL (0.6-1.0); ESTIMATED GFR 79 mL/min (>60); GLUCOSE RANDOM 97 mg/dL (74-106); POTASSIUM,K 3.2 mmol/L (3.6-5.2); PROTEIN TOTAL,TP 6.3 g/dL (6.4-8.2); SODIUM,NA 144 mmol/L (140-148)
[2024-09-04 07:58] LABS: ANION GAP 13.2 mmol/L (5.0-14.0)
[2024-09-04] MEDS: ceFAZolin 2 GM in Premix Bag 1 BAG IV ONE (08:25)
[2024-09-04] MEDS ORDERED: Lactated Ringers 1,000 ML ONE (08:41)
[2024-09-04] MEDS ORDERED: Scopalamine 1mg/3day Transdermal Patch ONE (08:43)
[2024-09-04] MEDS: Bupivacaine 0.5%/EPINEPHrine 1:200,000 50 ML MDV ONE (08:52)
[2024-09-04] MEDS: Ropivacaine 32 ML, dexAMETHasone 8 MG, EPINEPHrine 0.4 MG, Sodium Chloride 0.9% 45.6 ML NERVRT SCH (09:37)
[2024-09-04] MEDS ORDERED: fentaNYL 100 MCG/2 ML SDV ONE (10:38)
[2024-09-04 13:37] VITALS: BP 148/61; PULSE 57
[2024-09-04] MEDS: Acetaminophen/HYDROcodone 325-5 MG Tab PO PRN (13:39)
[2025-09-04] MEDS ORDERED: Ropivacaine 32 ML, dexAMETHasone 8 MG, EPINEPHrine 0.4 MG, Sodium Chloride 0.9% 45.6 ML NERVRT SCH (07:00)
== END 2024-09-04 14:33 | disposition home or self-care (01) ==
LOC: JP.SDS 06:54
PROVIDERS: ATTEND Surgery
DX: K43.6 Other and unspecified ventral hernia with obstruction, without gangrene (principal); K43.9 Ventral hernia without obstruction or gangrene; I10 Essential (primary) hypertension; E66.9 Obesity, unspecified; Z79.899 Other long term (current) drug therapy
CPT/HCPCS: 00832; 36415; 49595; 49596; 80053; 85027; A9270; C1713; C1765; C1781; J0171; J0330; J0690; J1100; J1596; J1836; J2405; J2704; J2710; J2795; J3010; J3490; J7120

== ENCOUNTER 2024-09-27 07:06 | Emergency (ER) | payer MEDICARE ==
[2024-09-27] MEDS: Ketorolac 30 MG/ML SDV IVPUSH ONE (08:13)
[2024-09-27] MEDS: Sodium Chloride 0.9% 1,000 ML IV ONE (08:13)
[2024-09-27] MEDS: Prochlorperazine 10 MG/2 ML SDV IVPUSH ONE (08:16)
[2024-09-27 08:17] LABS: BASOPHILS ABSOLUTE AUTO 0.04 K/uL (0.00-0.10); BASOPHILS PERCENT AUTO 0.5 % (0.1-1.3); EOSINOPHILS PERCENT AUTO 6.6 % (0.0-5.4); HEMATOCRIT 34.1 % (34.3-46.0); HEMOGLOBIN 10.9 g/dL (11.2-15.5); IMMATURE GRAN ABSOLUTE AUTO 0.02 K/uL (0.00-0.23); IMMATURE GRAN PERCENT AUTO 0.3 % (0.0-0.7); LYMPHOCYTES ABSOLUTE AUTO 1.55 K/uL (0.8-3.3); LYMPHOCYTES PERCENT AUTO 20.3 % (11.4-47.7); MEAN CORPUSCULAR HEMOGLOBIN 26.5 pg (31.6-35.5); MEAN CORPUSCULAR VOLUME 82.8 fL (81.4-99.0); MONOCYTES ABSOLUTE AUTO 0.55 K/uL (0.20-0.90); MONOCYTES PERCENT AUTO 7.2 % (3.3-12.6); NEUTROPHILS ABSOLUTE AUTO 4.97 K/uL (1.0-7.6); NEUTROPHILS PERCENT AUTO 65.1 % (40.0-78.1); PLATELET COUNT,PLT 308 K/uL (130-375); RED BLOOD CELL COUNT 4.12 M/uL (3.77-5.24); WHITE BLOOD CELL COUNT,WBC 7.6 K/uL (3.2-11.0)
[2024-09-27 08:47] LABS: ALANINE AMINOTRANSFERASE,ALT 18 U/L (12-78); ALBUMIN 2.8 g/dL (3.4-5.0); ALKALINE PHOSPHATASE 87 U/L (46-116); ASPARTATE AMNIOTRANSFERASE,AST 22 U/L (15-37); BILIRUBIN TOTAL 0.4 mg/dL (0.2-1.0); BLOOD UREA NITROGEN,BUN 9 mg/dL (7-18); CALCIUM 8.4 mg/dL (8.5-10.1); CARBON DIOXIDE,CO2 26 mmol/L (21-32); CHLORIDE,CL 108 mmol/L (100-108); CREATININE 0.7 mg/dL (0.6-1.0); EST CRCL DRUG DOSING (CG) 52.95 mL/min; ESTIMATED GFR 92 mL/min (>60); GLUCOSE RANDOM 100 mg/dL (74-106); POTASSIUM,K 3.1 mmol/L (3.6-5.2); PROTEIN TOTAL,TP 5.7 g/dL (6.4-8.2); SODIUM,NA 145 mmol/L (140-148)
[2024-09-27 08:50] LABS: ANION GAP 14.1 mmol/L (5.0-14.0); C-REACTIVE PROTEIN < 0.50 mg/dL (<0.50)
[2024-09-27 09:00] VITALS: BP 191/74; PULSE 60
[2024-09-27 09:07] LABS: APPEARANCE,URINE CLEAR (CLEAR); BILIRUBIN,URINE NEGATIVE (NEGATIVE); COLOR,URINE YELLOW (YELLOW); GLUCOSE,URINE NEGATIVE (NEGATIVE); KETONES,URINE 15 mg/dL (NEGATIVE); LEUKOCYTE ESTERASE,URINE SMALL (NEGATIVE); NITRITE,URINE POSITIVE (NEGATIVE); OCCULT BLOOD,URINE NEGATIVE (NEGATIVE); PROTEIN,URINE NEGATIVE (NEGATIVE); UROBILINOGEN,URINE 0.2 EU/dL (0.2-1.0)
[2024-09-27 09:19] LABS: AMORPHOUS SEDIMENT,URINE NOT SEEN; BACTERIA,URINE MANY; EPITHELIAL CELLS,URINE FEW; MUCUS,URINE NOT SEEN; RBC,URINE 0-5 (0-5)
== END 2024-09-27 09:52 | disposition home or self-care (01) ==
LOC: JP.ED 07:06
DX: N39.0 Urinary tract infection, site not specified (principal); M54.6 Pain in thoracic spine; I10 Essential (primary) hypertension; J45.909 Unspecified asthma, uncomplicated; Z98.84 Bariatric surgery status; Z90.49 Acquired absence of other specified parts of digestive tract; Z90.710 Acquired absence of both cervix and uterus; Z91.013 Allergy to seafood; Z91.040 Latex allergy status; Z91.041 Radiographic dye allergy status; Z79.51 Long term (current) use of inhaled steroids; Z79.899 Other long term (current) drug therapy
CPT/HCPCS: 36415; 74176; 80053; 81001; 83605; 85025; 86140; 87086; 87088; 87186; 96361; 96374; 96375; 99283; 99284; J0780; J1885; J7030

== ENCOUNTER 2025-01-21 21:14 | Emergency (ER) | payer MEDICARE ==
[2025-01-21 23:09] LABS: BASOPHILS ABSOLUTE AUTO 0.06 K/uL (0.00-0.10); BASOPHILS PERCENT AUTO 0.3 % (0.1-1.3); EOSINOPHILS ABSOLUTE AUTO 0.09 K/uL (0.00-0.40); EOSINOPHILS PERCENT AUTO 0.5 % (0.0-5.4); IMMATURE GRAN ABSOLUTE AUTO 0.10 K/uL (0.00-0.23); IMMATURE GRAN PERCENT AUTO 0.5 % (0.0-0.7); LYMPHOCYTES ABSOLUTE AUTO 0.48 K/uL (0.8-3.3); LYMPHOCYTES PERCENT AUTO 2.6 % (11.4-47.7); MONOCYTES ABSOLUTE AUTO 1.04 K/uL (0.20-0.90); MONOCYTES PERCENT AUTO 5.7 % (3.3-12.6); NEUTROPHILS ABSOLUTE AUTO 16.52 K/uL (1.0-7.6); NEUTROPHILS PERCENT AUTO 90.4 % (40.0-78.1); PLATELET COUNT,PLT 304 K/uL (130-375); RED BLOOD CELL COUNT 4.80 M/uL (3.77-5.24); WHITE BLOOD CELL COUNT,WBC 18.3 K/uL (3.2-11.0)
[2025-01-21 23:29] LABS: A/G RATIO 1.2 (1.2-2.2); ALANINE AMINOTRANSFERASE,ALT 22 U/L (12-78); ASPARTATE AMNIOTRANSFERASE,AST 21 U/L (15-37); BILIRUBIN TOTAL 0.7 mg/dL (0.2-1.0); BLOOD UREA NITROGEN,BUN 16 mg/dL (7-18); CARBON DIOXIDE,CO2 22 mmol/L (21-32); CHLORIDE,CL 109 mmol/L (100-108); CREATININE 0.9 mg/dL (0.6-1.0); EST CRCL DRUG DOSING (CG) 49.51 mL/min; ESTIMATED GFR 68 mL/min (>60); GLUCOSE RANDOM 132 mg/dL (74-106); POTASSIUM,K 3.7 mmol/L (3.6-5.2); PROTEIN TOTAL,TP 6.6 g/dL (6.4-8.2); SODIUM,NA 142 mmol/L (140-148)
[2025-01-22 00:16] VITALS: BP 123/63; PULSE 93
[2025-01-22] MEDS: methylPREDNISolone Sodium Succinate 125 MG/2 ML SDV IVPUSH ONE (00:37)
[2025-01-22] MEDS: diphenhydrAMINE 50 MG/ML SDV IVPUSH ONE (00:37)
[2025-01-22] MEDS ORDERED: Sodium Chloride 0.9% 10 ML Syringe FLUSH PRN (00:39)
[2025-01-22 01:34] LABS: APPEARANCE,URINE SLIGHTLY CLOUDY (CLEAR); GLUCOSE,URINE NEGATIVE (NEGATIVE); OCCULT BLOOD,URINE NEGATIVE (NEGATIVE)
[2025-01-22 01:46] LABS: SQUAMOUS EPITHELIAL CELLS,UR FEW /HPF; UROTHELIAL CELLS,URINE NOT SEEN /HPF
[2025-01-22] MEDS: Iopamidol 612 MG/ML 100 ML Bottle IV SCH (02:08)
== END 2025-01-22 02:28 | disposition home or self-care (01) ==
LOC: JP.ED 21:14
DX: N39.0 Urinary tract infection, site not specified (principal); I10 Essential (primary) hypertension; J45.909 Unspecified asthma, uncomplicated; K21.9 Gastro-esophageal reflux disease without esophagitis; Z90.710 Acquired absence of both cervix and uterus; Z79.899 Other long term (current) drug therapy; Z91.013 Allergy to seafood; Z91.041 Radiographic dye allergy status; Z91.040 Latex allergy status
CPT/HCPCS: 36415; 74177; 80053; 81001; 83690; 85025; 86140; 87086; 87088; 87186; 96361; 96374; 96375; 99285; J1200; J2919; J7030; Q9967; 99283